=== PATIENT | female | born 1950 | race Caucasian/White ===

== ENCOUNTER → 2016-11-02 | Outpatient (CLI) | payer MEDICARE, OTHER | END | disposition home or self-care (01) | LOC: LABWHC1 10:06 | PROVIDERS: ATTEND Internal Medicine Endocrinology, Diabetes & Metabolism | DX: C73 Malignant neoplasm of thyroid gland (principal) | CPT/HCPCS: 36415; 84432; 84443; 86800 ==

== ENCOUNTER → 2016-11-06 | Outpatient (CLI) | payer MEDICARE, OTHER ==
--- NOTE | 2016-11-06 10:10 | US ---
EXAMINATION TYPE: US thyroid st tissue head/neck DATE OF EXAM: 11/06/2016 8:28 AM COMPARISON: 03/05/2016 CLINICAL HISTORY: C73 malignant neoplasm thyroid gland. GLAND SIZE: Right Lobe: no residual tissue Left Lobe: no residual tissue Bilateral neck scanned 2 hypoechic non-vascular structures on right measuring 0.6 x 0.5 x 0.7cm, 2.) 0.9 x 0.6 x 0.9cm possible lymph nodes. Hyperechoic non-vascular structure on left measuring 0.5 x 0.3 x 0.6cm IMPRESSION: There are small less than 1 cm hypoechoic hyperechoic nodules bilaterally greater on the right as john sured above. The previous 1 cm suspected lymph node on the right appears stable. 2 additional subcent imeter nodules are also seen which may represent lymph nodes but are nonspecific. Hyperechoic nodule on the left is not typical of a lymph node and nonspecific.
== END | disposition home or self-care (01) ==
LOC: RADUSMAIN 07:57
PROVIDERS: ATTEND Internal Medicine Endocrinology, Diabetes & Metabolism
DX: E04.2 Nontoxic multinodular goiter (principal); C73 Malignant neoplasm of thyroid gland
CPT/HCPCS: 76536

== ENCOUNTER → 2016-11-16 | Outpatient (CLI) | payer MEDICARE, OTHER | LOC: RADNMMAIN 09:47 | PROVIDERS: ATTEND Internal Medicine Endocrinology, Diabetes & Metabolism | DX: Z53.9 Procedure and treatment not carried out, unspecified reason (principal) ==

== ENCOUNTER → 2017-01-24 | Outpatient (CLI) | payer MEDICARE, OTHER ==
--- NOTE | 2017-01-28 08:10 | MM ---
Reason for exam: screening (asymptomatic). Last mammogram was performed 1 year ago. History: Patient is postmenopausal and has history of high-risk lesion on a previous biopsy at age 59. Family history of breast cancer in sister at age 53 and breast cancer in daughter at age 35. Benign left breast needle localization of the left breast, February 09, 2013. Benign left mammotome panel of the left breast, January 26, 2013. High risk left breast needle localization of the left breast, May 27, 2009. Benign left US cyst aspiration of the left breast, April 02, 2005. Benign US left CoreBiopsy of the left breast, April 02, 2005. Benign stereotactic core biopsy of the left breast, April 30, 2002. Took hormonal contraceptives for 6 years beginning at age 20. Physical Findings: A clinical breast exam by your physician is recommended on an annual basis and results should be correlated with mammographic findings. MG 3D Screening Mammo W/Cad Bilateral CC and MLO view(s) were taken. Prior study comparison: January 24, 2016, bilateral MG screening mammo w CAD. January 07, 2015, bilateral MG screening mammo w CAD. The breast tissue is heterogeneously dense. This may lower the sensitivity of mammography. Benign calcifications. Post biopsy changes in the left breast. No significant changes when compared with prior studies. ASSESSMENT: Benign, BI-RAD 2 RECOMMENDATION: Routine screening mammogram of both breasts in 1 year.
== END | disposition home or self-care (01) ==
LOC: RADMAMWWP 07:44
PROVIDERS: ATTEND Obstetrics & Gynecology
DX: Z12.31 Encounter for screening mammogram for malignant neoplasm of breast (principal)
CPT/HCPCS: 77063; G0202

== ENCOUNTER → 2017-03-04 | Day surgery (SDC) | payer MEDICARE, OTHER ==
[~2017-03-04] MED LIST: THYROTROPIN ALFA 1.1 MG VIAL IM ONE
[2017-03-04 11:37] VITALS: RESP 16
[2017-03-05 11:08] VITALS: BP 151/86; PULSE 86; TEMP 98
--- NOTE | 2017-03-13 08:21 | NM ---
RADIOTRACER: 97.0 mCi I-131. TECHNIQUE: The patient was instructed to hold Synthroid. TSH was checked and was greater than 90. Pat ient is on a low iodine diet. Dose was prescribed (written directive) by an Authorized User in conjunction with treatment request russell Aguirre. Risks, benefits, and potential complications of radioactive I-131 therapy were discussed in detail wi th the patient by myself and the test engineer nuclear equipment. Verbal and written informed consent wer e obtained. Written instructions were given for radiation safety precautions to be observed for 4 day s outpatient. The patient specific exposure calculations were done by RSO to ensure estimated max dose to any indiv idual exposed to the patient was less than 5 mSv. The patient was specifically advised to avoid close contact with children, women, and other members of public. Dose was verified in dose caliber and patient was given oral I-131 pill under the supervision of me flores ellis the test engineer nuclear equipment. There were no immediate complications. IMPRESSION: Outpatient 3.02 mCi I-131 oral therapy capsule for thyroid cancer. The patient will follo w-up with Dr. Aguirre as to making arrangements for post ablation whole body scan as clinically indicated .
== END ==
LOC: RADNMMAIN 10:48
PROVIDERS: ATTEND Internal Medicine Endocrinology, Diabetes & Metabolism
DX: E89.0 Postprocedural hypothyroidism (principal); Z91.041 Radiographic dye allergy status
CPT/HCPCS: 96372; J3240; 79005; 84432; 84439; 84443; 86800

== ENCOUNTER → 2017-03-22 | Outpatient (CLI) | payer MEDICARE, OTHER ==
--- NOTE | 2017-03-22 08:59 | BD ---
EXAMINATION TYPE: MG DEXA axial skeleton. DATE OF EXAM: 03/22/2017 COMPARISON: 10.23.2013 CLINICAL HISTORY: M[age] KNOWN OSTEOPOROSIS Nuclear Medicine Study in the last 2 weeks: THYROID NUCLEAR MED SCAN 03.08.2017....EXACTLY 2 WKS AGO Height: 59.5 Weight: 145 FRAX RISK QUESTIONS: Alcohol (3 or more units per day): NO Family History (Parent hip fracture): NO FXS Glucocorticoids (More than 3mos): NO (Ex: prednisone, prednisolone, methylprednisolone, dexamethasone, and hydrocortisone). History of Fracture in Adulthood: YES Secondary Osteoporosis: NO 1. Type 1 Diabetes: NO 2. Hyperthyroidism: NO 3. Menopause before 45: YES 4. Malnutrition: NO 5. Chronic liver disease: NO Rheumatoid Arthritis: NO Current Tobacco Use: NO RISK FACTORS HISTORY OF: LT TOE, RECENTLY...>50 YRS OLD Family History of Osteoporosis: YES, MOTHER...NO HIP FXS Active: YES Diet low in dairy products/other sources of calcium: NO Postmenopausal woman: AT 37 YRS OLD If Premenopausal, do you have irregular periods: 37 Hyperparathyroidism: NO Adrenal Insufficiency: NO MEDICATIONS: Thyroid Medications: YES, SYNTHROID How Lon YR Additional Medications: RADIATION TO KILL THYROID LAST YR., STATINS FOR CHOLESTEROL Additional History: THYROID CA, EXAM MEASUREMENTS: Bone mineral densitometry was performed using the [employer] System. Bone mineral density as measured about the Lumbar spine is: ----- L1-L4(G/cm2): 0.904 T Score Values are as follows: ----- L1: -2.5 ----- L2: -2.9 ----- L3: -2.6 ----- L4: -2.0 ----- L1-L4: -2.4 Bone mineral density has: Decreased -5.1% since study of: 10.23.2013 Bone mineral density about the R hip (g/cm2): 0.865 Bone mineral density about the L hip (g/cm2): 0.823 T Score values are as follows: -----R Neck: -1.9 -----L Neck: -2.0 -----R Total: -1.1 -----L Total: -1.5 Bone mineral density has: Decreased -4.4% since study of: 10.23.2013 FRAX%'S: THERE IS A 10.3% CHANCE OF A MAJOR OSTEOPOROTIC FX AND A 1.7% CHANCE OF HIP FX....PROBDANIEL NICKERSON IN 10 YRS TIME IMPRESSION: Osteoporosis (T Score less than -2.5) as noted by T Score values at the low back persists. Bone densi ty continues to decrease or diminished from prior exam. There is increased fracture risk and therapy is usually indicated based on age. Re-Screen 1-2 years. NOTE: T-SCORE=SD OF THE YOUNG ADULT MEAN.
== END | disposition home or self-care (01) ==
LOC: RADBDWWP 07:17
PROVIDERS: ATTEND Obstetrics & Gynecology
DX: M81.0 Age-related osteoporosis without current pathological fracture (principal)
CPT/HCPCS: 77080

== ENCOUNTER → 2017-10-01 | Outpatient (CLI) | payer MEDICARE, OTHER | END | disposition home or self-care (01) | LOC: LABWHC1 11:34 | PROVIDERS: ATTEND Internal Medicine Endocrinology, Diabetes & Metabolism | DX: C73 Malignant neoplasm of thyroid gland (principal) | CPT/HCPCS: 36415; 84432; 84443 ==

== ENCOUNTER → 2018-02-06 | Outpatient (CLI) | payer MEDICARE, OTHER ==
[2018-02-06 20:01] LABS: Thyroglobulin <0.20 ng/mL (1.60-59.90)
== END | disposition home or self-care (01) ==
LOC: LABWHC1 07:43
PROVIDERS: ATTEND Internal Medicine Endocrinology, Diabetes & Metabolism
DX: C73 Malignant neoplasm of thyroid gland (principal)
CPT/HCPCS: 36415; 84432; 84443; 86800

== ENCOUNTER → 2018-02-17 | Outpatient (CLI) | payer MEDICARE, OTHER ==
--- NOTE | 2018-02-17 08:16 | US ---
EXAMINATION TYPE: US thyroid st tissue head/neck DATE OF EXAM: 02/17/2018 COMPARISON: Ultrasound 11/06/2016. Nuclear medicine scan 03/08/2017 CLINICAL HISTORY: 68-year-old female C73 malignant neoplasm of thyroid gland. TECHNIQUE: Multiple sonographic images of the thyroid gland are obtained. FINDINGS: Status post thyroidectomy. No residual thyroid tissue seen. Solid lesion seen, right lateral neck adjacent to IJV, measures 1.1 x 0.7 x 1.0 cm with vascularity. Previously measured 9 x 6 x 9 mm. The second nodule previously seen on the right and the left-sided hyperechoic nodule are no longer se en. IMPRESSION: 1. Status post thyroidectomy. 2. Solid nodule along the lateral aspect of the right internal jugular vein outside of the thyroidect feli bed is redemonstrated. This measures 1.1 x 1.0 cm versus 9 x 9 mm, previously. Continued follow-u p recommended given relatively little growth compared to 11/06/2016. Additional correlation with tumor markers recommended.
== END | disposition home or self-care (01) ==
LOC: RADUSWWP 07:34
PROVIDERS: ATTEND Internal Medicine Endocrinology, Diabetes & Metabolism
DX: Z08 Encounter for follow-up examination after completed treatment for malignant neoplasm (principal); E04.1 Nontoxic single thyroid nodule; E89.0 Postprocedural hypothyroidism; Z85.850 Personal history of malignant neoplasm of thyroid
CPT/HCPCS: 76536

== ENCOUNTER → 2018-03-05 | Outpatient (CLI) | payer MEDICARE, OTHER ==
--- NOTE | 2018-03-07 09:14 | MM ---
Reason for exam: screening (asymptomatic). Last mammogram was performed 1 year and 1 month ago. History: Patient is postmenopausal and has history of high-risk lesion on a previous biopsy at age 59. Family history of breast cancer in sister at age 53 and breast cancer in daughter at age 35. Benign left breast needle localization of the left breast, February 09, 2013. Benign left mammotome panel of the left breast, January 26, 2013. High risk left breast needle localization of the left breast, May 27, 2009. Benign left US cyst aspiration of the left breast, April 02, 2005. Benign US left CoreBiopsy of the left breast, April 02, 2005. Benign stereotactic core biopsy of the left breast, April 30, 2002. Took hormonal contraceptives for 6 years beginning at age 20. Physical Findings: A clinical breast exam by your physician is recommended on an annual basis and results should be correlated with mammographic findings. MG 3D Screening Mammo W/Cad Bilateral CC and MLO view(s) were taken. Prior study comparison: January 24, 2017, bilateral MG 3d screening mammo w/cad. January 24, 2016, bilateral MG screening mammo w CAD. There are scattered fibroglandular densities. No significant changes when compared with prior studies. ASSESSMENT: Benign, BI-RAD 2 RECOMMENDATION: Routine screening mammogram of both breasts in 1 year.
== END | disposition home or self-care (01) ==
LOC: RADMAMWWP 07:45
PROVIDERS: ATTEND Obstetrics & Gynecology
DX: Z12.31 Encounter for screening mammogram for malignant neoplasm of breast (principal)
CPT/HCPCS: 77063; 77067

== ENCOUNTER → 2018-06-10 | Outpatient (CLI) | payer MEDICARE, OTHER ==
[2018-06-10 20:11] LABS: Thyroglobulin 0.29 ng/mL (1.60-59.90)
== END | disposition home or self-care (01) ==
LOC: LABWHC1 07:42
PROVIDERS: ATTEND Internal Medicine Endocrinology, Diabetes & Metabolism
DX: C73 Malignant neoplasm of thyroid gland (principal)
CPT/HCPCS: 36415; 84432; 84443; 86800

== ENCOUNTER → 2018-06-13 | Outpatient (CLI) | payer MEDICARE, OTHER ==
--- NOTE | 2018-06-13 15:13 | US ---
EXAMINATION TYPE: US thyroid st tissue head/neck DATE OF EXAM: 06/13/2018 COMPARISON: February 17, 2018 CLINICAL HISTORY: C73 Malignant neoplasm of thyroid gland. Patient has previous thyroidectomy. At last exam, probable lymph node noted right lateral. Seen again today measuring 1.0 x 0.5 x 0.9cm IMPRESSION: 1. Total thyroidectomy change. 2. Stable lymph node as noted above.
== END | disposition home or self-care (01) ==
LOC: RADUSWWP 14:48
PROVIDERS: ATTEND Internal Medicine Endocrinology, Diabetes & Metabolism
DX: Z08 Encounter for follow-up examination after completed treatment for malignant neoplasm (principal); Z85.850 Personal history of malignant neoplasm of thyroid; Z90.89 Acquired absence of other organs
CPT/HCPCS: 76536

== ENCOUNTER 2018-09-02 09:47 | Day surgery (SDC) | payer MEDICARE ==
[2018-08-28 15:04] VITALS: BMI 26.4
[~2018-09-02 09:47] MED LIST changes: +HYDROmorphone 0.5 MG/0.5 ML SYRINGE IVP PRN; +LACTATED RINGERS 1,000 ML IV SCH; +LIDOCAINE 1% 20 ML VIAL (10MG/ML) FOR IV START INTRADERMA PRN; +ONDANSETRON 4 MG/2 ML VIAL IVP PRN; -THYROTROPIN ALFA 1.1 MG VIAL IM ONE
[2018-09-02 10:03] VITALS: RESP 16; TEMP 98.4
[2018-09-02] MEDS ORDERED: PROPOFOL 10 MG/ML 20 ML VIAL IV ONE (11:37)
[2018-09-02 12:32] VITALS: BP 128/88; PULSE 77
--- NOTE | 2018-09-02 12:42 | P.PCN ---
Date of Procedure: 09/02/18 Procedure(s) Performed: Procedure: Colonoscopy. Preoperative diagnosis: Screening for neoplasia. Postoperative diagnosis: Sigmoid diverticulosis with no evidence of acute diverticulitis, strictures, polyps or cancer. Preparation: HalfLytely prep. Sedation: Was provided by anesthesia. Brief clinical history: The patient is a 68-year-old female who is scheduled for this evaluation for screening for neoplasia. There is family history of colon cancer in her mother. Her last exam was around 10 years ago. She has no abdominal complaints, bleeding or anemia. Procedure: With the patient on her left lateral decubitus position and after informed consent and adequate sedation, the perianal area was inspected and it did not show any fissures or fistulas. There were no masses felt on digital rectal examination. The Olympus CFH 190L video colonoscope was then inserted in the rectum and the usual fashion and advanced to the cecum. There were several diverticular orifices seen scattered in the sigmoid but I saw no evidence of acute diverticulitis or strictures. No polyps or tumors were seen. I retroflexed the endoscope in the rectum before the endoscope was withdrawn. The patient tolerated the procedure well. Plan: The patient was reassured. Discussed dietary measures. She will follow- up with you as planned and I recommended repeat exam in 5 years.
== END 2018-09-02 12:47 | disposition home or self-care (01) ==
LOC: ORWHC2ENDO 09:47
DX: Z12.11 Encounter for screening for malignant neoplasm of colon (principal); K57.30 Diverticulosis of large intestine without perforation or abscess without bleeding; Z80.0 Family history of malignant neoplasm of digestive organs; I48.91 Unspecified atrial fibrillation; E78.5 Hyperlipidemia, unspecified; I10 Essential (primary) hypertension; E07.9 Disorder of thyroid, unspecified; Z79.890 Hormone replacement therapy; Z79.899 Other long term (current) drug therapy
CPT/HCPCS: G0105; J2704; 45378

== ENCOUNTER → 2018-10-13 | Outpatient (CLI) | payer MEDICARE ==
[2018-10-13 19:47] LABS: Thyroglobulin 0.22 ng/mL (1.60-59.90)
== END ==
LOC: LABWHC1 07:57
PROVIDERS: ATTEND Internal Medicine Endocrinology, Diabetes & Metabolism
DX: C73 Malignant neoplasm of thyroid gland (principal)
CPT/HCPCS: 36415; 84432; 84443; 86800

== ENCOUNTER → 2019-04-03 | Outpatient (CLI) | payer MEDICARE | END | disposition home or self-care (01) | LOC: LABWHC1 07:45 | PROVIDERS: ATTEND Internal Medicine Endocrinology, Diabetes & Metabolism | DX: C73 Malignant neoplasm of thyroid gland (principal) | CPT/HCPCS: 36415; 84432; 84443; 86800 ==

== ENCOUNTER → 2019-04-09 | Outpatient (CLI) | payer MEDICARE ==
--- NOTE | 2019-04-10 14:07 | MM ---
Reason for exam: screening (asymptomatic). Last mammogram was performed 1 year and 1 month ago. History: Patient is postmenopausal and has history of high-risk lesion on a previous biopsy at age 59. Family history of breast cancer in sister at age 53 and breast cancer in daughter at age 35. Benign left breast needle localization of the left breast, February 09, 2013. Benign left mammotome panel of the left breast, January 26, 2013. High risk left breast needle localization of the left breast, May 27, 2009. Benign left US cyst aspiration of the left breast, April 02, 2005. Benign US left CoreBiopsy of the left breast, April 02, 2005. Benign stereotactic core biopsy of the left breast, April 30, 2002. Took hormonal contraceptives for 6 years beginning at age 20. Physical Findings: A clinical breast exam by your physician is recommended on an annual basis and results should be correlated with mammographic findings. MG 3D Screening Mammo W/Cad Bilateral CC and MLO view(s) were taken. Prior study comparison: March 05, 2018, bilateral MG 3d screening mammo w/cad. January 24, 2017, bilateral MG 3d screening mammo w/cad. The breast tissue is heterogeneously dense. This may lower the sensitivity of mammography. No significant changes when compared with prior studies. ASSESSMENT: Benign, BI-RAD 2 RECOMMENDATION: Routine screening mammogram of both breasts in 1 year.
== END | disposition home or self-care (01) ==
LOC: RADMAMWWP 09:36
PROVIDERS: ATTEND Obstetrics & Gynecology
DX: Z12.31 Encounter for screening mammogram for malignant neoplasm of breast (principal); Z80.3 Family history of malignant neoplasm of breast
CPT/HCPCS: 77063; 77067

== ENCOUNTER → 2019-04-16 | Outpatient (CLI) | payer MEDICARE ==
--- NOTE | 2019-04-16 10:22 | BD ---
EXAMINATION TYPE: Axial Bone Density DATE OF EXAM: 04/16/2019 COMPARISON: 03.22.2017 CLINICAL HISTORY: M 89.9 Height: 60.5 Weight: 146.0 FRAX RISK QUESTIONS: Alcohol (3 or more units per day): no Family History (Parent hip fracture): no Glucocorticoids (More than 3mos): no (Ex: prednisone, prednisolone, methylprednisolone, dexamethasone, and hydrocortisone). History of Fracture in Adulthood: yes Secondary Osteoporosis: 1. Type 1 Diabetes: no 2. Hyperthyroidism: no 3. Menopause before 45: yes 4. Malnutrition: no 5. Chronic liver disease: no Rheumatoid Arthritis: no Current Tobacco Use: no RISK FACTORS HISTORY OF: History of Wrist Fracture: left wrist When: around age 50 Family History of Osteoporosis: yes Active: yes Diet low in dairy products/other sources of calcium: yes Postmenopausal woman: partial hysterectomy age 35 Lost more than 2 inches in height since high school: no MEDICATIONS: cholesterol meds, blood pressure with a water pill Thyroid Medications: thyroid How Lon years Additional History: EXAM MEASUREMENTS: Bone mineral densitometry was performed using the [employer] System. Bone mineral density as measured about the Lumbar spine is: ----- L1-L4(G/cm2): 0.944 T Score Values are as follows: ----- L2: -3.0 ----- L3: -1.7 ----- L4: -1.5 ----- L1-L4: -2.0 Bone mineral density has: increased 6.1 % since study of: 03.22.2017 Bone mineral density about the R hip (g/cm2): 0.762 Bone mineral density about the L hip (g/cm2): 0.757 T Score values are as follows: -----R Neck: -2.0 -----L Neck: -2.0 -----R Total: -1.0 -----L Total: -1.4 Bone mineral density has: increased 1.2 % since study of: 03.22.2017 IMPRESSION: Osteopenia (T Score between -2.5 and -1). There is slightly increased risk of fracture and the patient may be considered for treatment. Re-Screen 2-5 years. NOTE: T-SCORE=SD OF THE YOUNG ADULT MEAN.
== END | disposition home or self-care (01) ==
LOC: RADBDWWP 07:53
PROVIDERS: ATTEND Obstetrics & Gynecology
DX: M85.88 Other specified disorders of bone density and structure, other site (principal)
CPT/HCPCS: 77080

== ENCOUNTER → 2019-09-23 | Outpatient (CLI) | payer MEDICARE ==
[2019-09-23 10:09] LABS: Basophils # (A) 0.1 k/uL (0-0.2); Basophils % (A) 1 %; Eosinophils # (A) 0.2 k/uL (0-0.7); Eosinophils % (A) 3 %; HCT 39.5 % (34.0-46.0); HGB 13.3 gm/dL (11.4-16.0); Lymphocytes # (A) 1.4 k/uL (1.0-4.8); Lymphocytes % (A) 25 %; MCH 27.5 pg (25.0-35.0); MCHC 33.8 g/dL (31.0-37.0); MCV 81.4 fL (80.0-100.0); Mean Platelet Volume 7.1; Monocytes # (A) 0.4 k/uL (0-1.0); Monocytes % (A) 7 %; Neutrophils # (A) 3.4 k/uL (1.3-7.7); Neutrophils % (A) 62 %; Platelet Count 250 k/uL (150-450); RBC 4.85 m/uL (3.80-5.40); RDW 12.1 % (11.5-15.5); WBC 5.5 k/uL (3.8-10.6)
[2019-09-23 17:05] LABS: African American GFR (CKD) 75.6 (60.0-200.0); Albumin 4.4 g/dL (3.80-4.90); Albumin/Globulin Ratio 1.91 (1.60-3.17); Anion Gap 11.9 mmol/L (4.00-12.00); BUN/Creat Ratio 13.33 Ratio (12.00-20.00); Calcium 9.3 mg/dL (8.7-10.3); Carbon Dioxide 27.1 mmol/L (21.6-31.8); Chol/HDL Ratio 4.09; Globulin 2.3 g/dL (1.6-3.3); LDL Cholesterol,Calculated 99.2 mg/dL (0.0-131.0); Non-African American GFR(CKD) 65.2 (60.0-200.0); Potassium 3.6 mmol/L (3.5-5.5); Total Bilirubin 0.6 mg/dL (0.3-1.2); Total Protein 6.7 g/dL (6.2-8.2); VLDL Calculation 42.8 mg/dL (5.00-40.00)
== END | disposition home or self-care (01) ==
LOC: LABWHC1 08:42
PROVIDERS: ATTEND Internal Medicine Endocrinology, Diabetes & Metabolism
DX: C73 Malignant neoplasm of thyroid gland (principal); E78.5 Hyperlipidemia, unspecified; D64.9 Anemia, unspecified; R73.9 Hyperglycemia, unspecified; R03.0 Elevated blood-pressure reading, without diagnosis of hypertension; E55.9 Vitamin D deficiency, unspecified
CPT/HCPCS: 36415; 80053; 80061; 82306; 84432; 84443; 85025; 86800

== ENCOUNTER → 2019-09-25 | Outpatient (CLI) | payer MEDICARE ==
--- NOTE | 2019-09-26 07:30 | US ---
EXAMINATION TYPE: US thyroid st tissue head/neck DATE OF EXAM: 09/25/2019 COMPARISON: 06/13/2018 CLINICAL HISTORY: C73 MALIGNANT NEOPLASM OF THYROID GLAND. Hx total thyroidectomy. GLAND SIZE: Right Lobe: Surgically absent Left Lobe: Surgically absent Bilateral neck scanned. Prominent lymph node appearing lesion in right lateral neck = 1.1 x 0.8 x 0. 6 cm. This measured 1.0 x 0.9 x 0.5 cm on the exam of 06/13/2018. IMPRESSION: Similar size of the solitary prominent right sided lymph node in comparison to the exam 2017. Correlate with serum direct globulin levels. Surgical absence of the thyroid gland.
== END | disposition home or self-care (01) ==
LOC: RADUSWWP 16:39
PROVIDERS: ATTEND Internal Medicine Endocrinology, Diabetes & Metabolism
DX: E89.0 Postprocedural hypothyroidism (principal); C73 Malignant neoplasm of thyroid gland
CPT/HCPCS: 76536

== ENCOUNTER 2020-04-06 09:56 | Emergency (ER) | payer MEDICARE ==
[2020-04-06 10:03] VITALS: RESP 18
--- NOTE | 2020-04-06 10:20 | ED ---
General Adult HPI - General Chief complaint: Fall Stated complaint: Fall Time Seen by Provider: 04/06/20 10:04 Source: patient, RN notes reviewed Mode of arrival: wheelchair Limitations: no limitations - History of Present Illness Initial comments: 70-year-old female with a past medical history of atrial fibrillation with ablation, hyperlipidemia presents to the emergency room for a chief complaint of fall. Patient reports yesterday she was walking backwards down about 5 steps. States she missed the second step and fell. Patient states she injured her right ankle when she fell. She states that it was swollen last night however has improved significantly after keeping it elevated and ice on it. Patient states it is painful to walk on. Patient denies any chest back or abdominal pain. Patient did not hit her head during the fall however she states a shelf did fall from a wall and hit her on the head. No loss of consciousness. No headache. No blood thinners.Patient has no other complaints at this time including shortness of breath, chest pain, abdominal pain, nausea or vomiting, headache, or visual changes. - Related Data Home Medications Medication Instructions Recorded Confirmed Pravastatin Sodium [Pravachol] 20 mg PO HS 08/26/15 04/06/20 Levothyroxine Sodium [Synthroid] 112 mcg PO QAM 02/22/17 04/06/20 lisinopriL [Prinivil] 10 mg PO QAM 03/25/18 04/06/20 hydroCHLOROthiazide [Hydrodiuril] 25 mg PO DAILY 04/06/20 04/06/20 Allergies Allergy/AdvReac Type Severity Reaction Status Date / Time No Known Allergies Allergy Verified 04/06/20 10:39 Review of Systems ROS Statement: Those systems with pertinent positive or pertinent negative responses have been documented in the HPI. ROS Other: All systems not noted in ROS Statement are negative. Past Medical History Past Medical History: Atrial Fibrillation, Hyperlipidemia, Thyroid Disorder Additional Past Medical History / Comment(s): PREVIOUS ATRIAL FIB-HAD ABLATION History of Any Multi-Drug Resistant Organisms: None Reported Past Surgical History: Cardiac Ablation, Hysterectomy Additional Past Surgical History / Comment(s): LEFT SIDE THYROID REMOVED, breast biopsy Past Anesthesia/Blood Transfusion Reactions: No Reported Reaction Past Psychological History: No Psychological Hx Reported Smoking Status: Never smoker Past Alcohol Use History: Occasional Past Drug Use History: None Reported - Past Family History Sister(s) Family Medical History: Cancer Additional Family Medical History / Comment(s): breast cancer, liver cancer Mother Family Medical History: Cancer Additional Family Medical History / Comment(s): COLON CANCER Daughter(s) Family Medical History: Cancer Additional Family Medical History / Comment(s): BREAST CANCER General Exam - General Exam Comments Initial Comments: Right ankle: Patient does have some mild edema noted to the lateral malleolus. No medial malleoli or edema. No tenderness in the ankle or foot. Full range of motion of the right ankle and foot. Limitations: no limitations General appearance: alert, in no apparent distress Head exam: Present: atraumatic, normocephalic, normal inspection Eye exam: Present: normal appearance, PERRL, EOMI. Absent: scleral icterus, conjunctival injection, periorbital swelling ENT exam: Present: normal exam, mucous membranes moist Neck exam: Present: normal inspection. Absent: tenderness, meningismus, lymphadenopathy Respiratory exam: Present: normal lung sounds bilaterally. Absent: respiratory distress, wheezes, rales, rhonchi, stridor Cardiovascular Exam: Present: regular rate, normal rhythm, normal heart sounds. Absent: systolic murmur, diastolic murmur, rubs, gallop, clicks GI/Abdominal exam: Present: soft, normal bowel sounds. Absent: distended, tenderness, guarding, rebound, rigid Neurological exam: Present: alert, oriented X3 Course Vital Signs 04/06/20 10:00 Temperature 98.7 F Pulse Rate 84 Respiratory 18 Rate Blood Pressure 136/84 O2 Sat by Pulse 98 Oximetry Medical Decision Making - Medical Decision Making X-ray of the right foot and ankle shows no definite acute fracture or dislocation. Patient was given a aircast. She will follow-up with orthopedics. Discussed rice therapy and Motrin and Tylenol for pain. Discussed returning if she has any worsening symptoms or Disposition Clinical Impression: Ankle pain, right Disposition: HOME SELF-CARE Condition: Good Instructions (If sedation given, give patient instructions): Swollen Joint (ED) Additional Instructions: Please take Motrin and Tylenol for pain. Rest ice and elevate the right ankle. Follow-up with your doctor in one to 2 days. Return to the emergency room for any worsening symptoms. Is patient prescribed a controlled substance at d/c from ED?: No Referrals: Nonstaff,Physician [Primary Care Provider] - 1-2 days Time of Disposition: 11:09
--- NOTE | 2020-04-06 10:48 | XR ---
EXAMINATION TYPE: XR ankle complete RT DATE OF EXAM: 04/06/2020 COMPARISON: NONE HISTORY: Pain FINDINGS: Three views of the ankle demonstrate the ankle mortise to be intact and symmetric. The joint spaces are preserved. The osseous structures are intact. Small plantar calcaneal spur. IMPRESSION: 1. No definite acute fracture or dislocation, if symptoms persist follow-up study in 7 to 10 days wou ld be suggested.
--- NOTE | 2020-04-06 10:49 | XR ---
EXAMINATION TYPE: XR foot complete RT DATE OF EXAM: 04/06/2020 COMPARISON: NONE HISTORY: Pain TECHNIQUE: Three views are submitted. FINDINGS: The osseous structures are intact. There is no acute fracture or dislocation. Arthropathy of the f irst MTP joint. Small plantar calcaneal spur IMPRESSION: 1. No acute fracture or dislocation. If symptoms persist, follow-up exam in 7 to 10 days could be ob tained.
[2020-04-06 11:20] VITALS: BP 110/87; PULSE 85; TEMP 98.2
== END 2020-04-06 11:22 | disposition home or self-care (01) ==
LOC: EC 09:56
DX: M25.571 Pain in right ankle and joints of right foot (principal); E78.5 Hyperlipidemia, unspecified; E07.9 Disorder of thyroid, unspecified; Z79.899 Other long term (current) drug therapy; Z79.890 Hormone replacement therapy
CPT/HCPCS: 29515; 99283

== ENCOUNTER → 2020-05-03 | Outpatient (CLI) | payer MEDICARE ==
--- NOTE | 2020-05-09 11:16 | MM ---
Reason for exam: screening (asymptomatic). Last mammogram was performed 1 year and 1 month ago. History: Patient is postmenopausal, has history of high-risk lesion on a previous biopsy at age 59, and history of other cancer. Family history of breast cancer in sister at age 53 and breast cancer in daughter at age 35. Benign left breast needle localization of the left breast, February 09, 2013. Benign left mammotome panel of the left breast, January 26, 2013. High risk left breast needle localization of the left breast, May 27, 2009. Benign left US cyst aspiration of the left breast, April 02, 2005. Benign US left CoreBiopsy of the left breast, April 02, 2005. Benign stereotactic core biopsy of the left breast, April 30, 2002. Took hormonal contraceptives for 6 years beginning at age 20. Physical Findings: A clinical breast exam by your physician is recommended on an annual basis and results should be correlated with mammographic findings. MG 3D Screening Mammo W/Cad Bilateral CC and MLO view(s) were taken. Prior study comparison: April 09, 2019, bilateral MG 3d screening mammo w/cad. March 05, 2018, bilateral MG 3d screening mammo w/cad. The breast tissue is heterogeneously dense. This may lower the sensitivity of mammography. Benign appearing calcifications in the left breast. Asymmetric breast tissue post surgical change left breast. No significant changes when compared with prior studies. ASSESSMENT: Benign, BI-RAD 2 RECOMMENDATION: Routine screening mammogram of both breasts in 1 year.
== END | disposition home or self-care (01) ==
LOC: RADMAMWWP 13:48
PROVIDERS: ATTEND Obstetrics & Gynecology
DX: Z12.31 Encounter for screening mammogram for malignant neoplasm of breast (principal)
CPT/HCPCS: 77063; 77067

== ENCOUNTER → 2020-06-23 | Outpatient (CLI) | payer MEDICARE | END | disposition home or self-care (01) | LOC: LABWHC1 08:22 | PROVIDERS: ATTEND Internal Medicine Endocrinology, Diabetes & Metabolism | DX: C73 Malignant neoplasm of thyroid gland (principal) | CPT/HCPCS: 36415; 84432; 84443; 86800 ==

== ENCOUNTER → 2020-12-22 | Outpatient (CLI) | payer MEDICARE ==
--- NOTE | 2020-12-22 17:59 | US ---
EXAMINATION TYPE: US thyroid st tissue head/neck DATE OF EXAM: 12/22/2020 COMPARISON: 09/25/2019 CLINICAL HISTORY: C73 MALIGNANT NEOPLASM OF THYROID GLAND. GLAND SIZE: Right Lobe: Surgically absent Left Lobe: Surgically absent NODULES Bilateral neck scanned. Within the right neck, there is a prominent hypoechoic lymph node visualized measuring 0.8 x 0.7 x 0.9 cm. This previously measured 1.1 x 0.8 x 0.6 cm on 09/25/2019 IMPRESSION: 1. No suspicious recurrent masses within the thyroid bed. 2. Diminished size of a right neck lymph node
== END | disposition home or self-care (01) ==
LOC: RADUSWWP 10:59
PROVIDERS: ATTEND Internal Medicine Endocrinology, Diabetes & Metabolism
DX: C73 Malignant neoplasm of thyroid gland (principal)
CPT/HCPCS: 76536

== ENCOUNTER → 2020-12-22 | Outpatient (CLI) | payer MEDICARE | END | disposition home or self-care (01) | LOC: LABWHC1 07:24 | PROVIDERS: ATTEND Internal Medicine Endocrinology, Diabetes & Metabolism | DX: C73 Malignant neoplasm of thyroid gland (principal) | CPT/HCPCS: 36415; 84432; 84443; 86800 ==

== ENCOUNTER → 2021-05-19 | Outpatient (CLI) | payer MEDICARE ==
--- NOTE | 2021-05-22 11:42 | MM ---
Reason for exam: screening (asymptomatic). Last mammogram was performed 1 year and 1 month ago. History: Patient is postmenopausal, has history of high-risk lesion on a previous biopsy at age 59, and has history of other cancer at age 35. Family history of breast cancer in sister at age 53 and breast cancer in daughter at age 35. Benign left breast needle localization of the left breast, February 09, 2013. Benign left mammotome panel of the left breast, January 26, 2013. High risk left breast needle localization of the left breast, May 27, 2009. Benign left US cyst aspiration of the left breast, April 02, 2005. Benign US left CoreBiopsy of the left breast, April 02, 2005. Benign stereotactic core biopsy of the left breast, April 30, 2002. Took hormonal contraceptives for 6 years beginning at age 20. Physical Findings: A clinical breast exam by your physician is recommended on an annual basis and results should be correlated with mammographic findings. MG 3D Screening Mammo W/Cad Bilateral CC and MLO view(s) were taken. Prior study comparison: May 03, 2020, bilateral MG 3d screening mammo w/cad. April 09, 2019, bilateral MG 3d screening mammo w/cad. The breast tissue is heterogeneously dense. This may lower the sensitivity of mammography. Finding: There is stable decreased size and architectural distortion in the lower inner quadrant of the left breast consistent with known excisional changes. There is no new dominant lesion. ASSESSMENT: Benign, BI-RAD 2 RECOMMENDATION: Routine screening mammogram of both breasts in 1 year.
== END | disposition home or self-care (01) ==
LOC: RADMAMWWP 08:33
PROVIDERS: ATTEND Obstetrics & Gynecology
DX: Z12.31 Encounter for screening mammogram for malignant neoplasm of breast (principal); Z80.3 Family history of malignant neoplasm of breast
CPT/HCPCS: 77063; 77067

== ENCOUNTER → 2021-07-25 | Outpatient (CLI) | payer MEDICARE | END | disposition home or self-care (01) | LOC: LABWHC1 07:52 | PROVIDERS: ATTEND Internal Medicine Endocrinology, Diabetes & Metabolism | DX: C73 Malignant neoplasm of thyroid gland (principal) | CPT/HCPCS: 36415; 84432; 84443; 86800 ==

== ENCOUNTER → 2022-01-24 | Outpatient (CLI) | payer MEDICARE | END | disposition home or self-care (01) | LOC: LABWHC1 07:51 | PROVIDERS: ATTEND Internal Medicine Endocrinology, Diabetes & Metabolism | DX: C73 Malignant neoplasm of thyroid gland (principal) | CPT/HCPCS: 36415; 84432; 84443; 86800 ==

== ENCOUNTER → 2022-02-13 | Outpatient (CLI) | payer MEDICARE ==
--- NOTE | 2022-02-13 10:31 | BD ---
EXAMINATION TYPE: Axial Bone Density DATE OF EXAM: 02/13/2022 COMPARISON: NONE CLINICAL HISTORY: 72 years year old Female. ICD-10 CODE: M85.88 OSTEOPENIA Height: 5 FT Weight: 139 FRAX RISK QUESTIONS: Alcohol (3 or more units per day): NO Family History (Parent hip fracture): NO Glucocorticoids (More than 3mos): NO (Ex: prednisone, prednisolone, methylprednisolone, dexamethasone, and hydrocortisone). History of Fracture in Adulthood: YES Secondary Osteoporosis: 1. Type 1 Diabetes: NO 2. Hyperthyroidism: REMOVED 3. Menopause before 45: YES 4. Malnutrition: NO 5. Chronic liver disease: NO Rheumatoid Arthritis: NO Current Tobacco Use: NO RISK FACTORS HISTORY OF: History of Wrist Fracture: RT WRIST When: 2012 Surgery to Spine/Hip(right/left)/Wrist (right/left): RT WRIST When: Family History of Osteoporosis: YES Active: YES Diet low in dairy products/other sources of calcium: NO Postmenopausal woman: YES Take estrogen and/or progesterone medications: NO Lost more than 2 inches in height since high school: NO Frequent falls: NO Poor Health: GOOD Hyperparathyroidism: NO Adrenal Insufficiency: NO MEDICATIONS: Thyroid Medications: YES Which medication: SYNTHROID How Lon YEARS Additional Medications: SYNTHROID, CHOLESTEROL MEDS, BLOOD PRESSURE MEDS, Additional History: EXAM MEASUREMENTS: Bone mineral densitometry was performed using the [employer] System. Bone mineral density as measured about the Lumbar spine is: ----- L1-L4(G/cm2): 0.911 T Score Values are as follows: ----- L1: -2.3 ----- L2: -3.1 ----- L3: -1.9 ----- L4: -1.7 ----- L1-L4: -2.2 Bone mineral density has: INCREASED 3.3 % since study of: 2017 Bone mineral density about the R hip (g/cm2): 0.777 Bone mineral density about the L hip (g/cm2): 0.699 T Score values are as follows: -----R Neck: -1.9 -----L Neck: -2.4 -----R Total: -1.3 -----L Total: -1.8 Bone mineral density has: DECREASED -3.9 % since study of: 2017 FRAX%s: The graph provided illustrates a 13.6 % chance for a major osteoporotic fx and a 3.4 % chance for the hips probability for fx in 10 years time. IMPRESSION: Osteopenia (T Score between -2.5 and -1). There is slightly increased risk of fracture and the patient may be considered for treatment. Re-Screen 2-5 years. NOTE: T-SCORE=SD OF THE YOUNG ADULT MEAN.
== END | disposition home or self-care (01) ==
LOC: RADBDWWP 08:27
PROVIDERS: ATTEND Obstetrics & Gynecology
DX: M85.89 Other specified disorders of bone density and structure, multiple sites (principal)
CPT/HCPCS: 77080

== ENCOUNTER → 2022-07-30 | Outpatient (CLI) | payer MEDICARE | LOC: LABWHC1 08:27 | PROVIDERS: ATTEND Internal Medicine Endocrinology, Diabetes & Metabolism | DX: C73 Malignant neoplasm of thyroid gland (principal) | CPT/HCPCS: 36415; 84432; 84443; 86800 ==

== ENCOUNTER → 2022-08-01 | Outpatient (CLI) | payer MEDICARE ==
--- NOTE | 2022-08-02 08:26 | MM ---
Reason for Exam: Screening (asymptomatic). Last mammogram was performed 1 year(s) and 2 month(s) ago. Patient History: Menarche at age 18. First Full-Term at age 20. Hysterectomy at age 46. Postmenopausal. Other cancer, age 35. Hormonal Contraceptives for 6 years from age 20 until age 26. 02/09/2013, Benign Excisional Biopsy on the left side. 01/26/2013, Benign Core Biopsy on the left side. 05/27/2009, High risk Excisional Biopsy on the left side. 04/02/2005, Benign Cyst Aspiration on the left side. 04/02/2005, Benign Core Biopsy on the left side. 04/30/2002, Benign Stereotactic Core Biopsy on the left side. Sister had breast cancer, age 53. Daughter had breast cancer, age 35. Risk Values: Mirta 5 year model risk: 9.6%. NCI Lifetime model risk: 23.0%. Prior Study Comparison: 04/09/2019 Bilateral Screening Mammogram, [facility]. 05/03/2020 Bilateral Screening Mammogram, [facility]. 05/19/2021 Bilateral Screening Mammogram, [facility]. Tissue Density: The breast tissue is heterogeneously dense. This may lower the sensitivity of mammography. Findings: Analyzed By CAD. There is no suspicious group of microcalcifications or new suspicious mass in either breast. Overall Assessment: Negative, BI-RAD 1 Management: Screening Mammogram of both breasts in 1 year. A clinical breast exam by your physician is recommended on an annual basis and results should be correlated with mammographic findings. [facility] will attempt to contact patient to return for supplemental views and ultrasound if indicated. Electronically signed and approved by: Dawson Sprague DO
== END | disposition home or self-care (01) ==
LOC: RADMAMWWP 07:12
PROVIDERS: ATTEND Obstetrics & Gynecology
DX: Z12.31 Encounter for screening mammogram for malignant neoplasm of breast (principal); Z78.0 Asymptomatic menopausal state; Z80.3 Family history of malignant neoplasm of breast
CPT/HCPCS: 77063; 77067

== ENCOUNTER → 2023-01-14 | Outpatient (CLI) | payer MEDICARE ==
[2023-01-14 16:26] LABS: T4, Free (Free Thyroxine) 1.97 ng/dL (0.80-1.80)
== END | disposition home or self-care (01) ==
LOC: LABWHC1 07:55
PROVIDERS: ATTEND Internal Medicine Endocrinology, Diabetes & Metabolism
DX: E03.9 Hypothyroidism, unspecified (principal)
CPT/HCPCS: 36415; 84439; 84443

== ENCOUNTER → 2023-01-23 | Outpatient (CLI) | payer MEDICARE ==
--- NOTE | 2023-01-23 14:29 | US ---
EXAMINATION TYPE: US thyroid st tissue head/neck DATE OF EXAM: 01/23/2023 COMPARISON: US 2020 CLINICAL INDICATION: Female, 72 years old with history of C73 Malignant neoplasm of thyroid gland; Hx thyroid cancer. Thyroid gland removed in 2016. Patient is on thyroid medication. GLAND SIZE: Right Lobe: Surgically absent Left Lobe: Surgically absent Bilateral neck scanned. Within the right neck, there appears to be a hypoechoic area lateral to the I JV measuring 0.9 x 1.0 x 0.7 cm. This area previously measured 0.8 x 0.7 x 0.9 cm on prior exam in 2020. IMPRESSION: There is a nonenlarged lymph node within the right neck. This may be fractionally larger than prior i n 2020.
== END | disposition home or self-care (01) ==
LOC: RADUSWWP 13:22
PROVIDERS: ATTEND Internal Medicine Endocrinology, Diabetes & Metabolism
DX: C73 Malignant neoplasm of thyroid gland (principal); R59.0 Localized enlarged lymph nodes
CPT/HCPCS: 76536

== ENCOUNTER → 2023-07-29 | Outpatient (CLI) | payer MEDICARE | END | disposition home or self-care (01) | LOC: LABWHC1 08:11 | PROVIDERS: ATTEND Internal Medicine Endocrinology, Diabetes & Metabolism | DX: C73 Malignant neoplasm of thyroid gland (principal) | CPT/HCPCS: 36415; 84432; 84443; 86800 ==

== ENCOUNTER → 2023-08-02 | Outpatient (CLI) | payer MEDICARE ==
--- NOTE | 2023-08-02 20:35 | MM ---
Reason for Exam: Screening (asymptomatic). Last screening mammogram was performed 12 month(s) ago. Patient History: Menarche at age 18. First Full-Term at age 20. Hysterectomy at age 46. Postmenopausal. Other cancer, age 35. Hormonal Contraceptives for 6 years from age 20 until age 26. 02/09/2013, Benign Excisional Biopsy on the left side. 01/26/2013, Benign Core Biopsy on the left side. 05/27/2009, High risk Excisional Biopsy on the left side. 04/02/2005, Benign Cyst Aspiration on the left side. 04/02/2005, Benign Core Biopsy on the left side. 04/30/2002, Benign Stereotactic Core Biopsy on the left side. Sister had breast cancer, age 53. Daughter had breast cancer, age 35. Risk Values: Mirta 5 year model risk: 6.5%. NCI Lifetime model risk: 15.4%. Prior Study Comparison: 05/03/2020 Bilateral Screening Mammogram, [facility]. 05/19/2021 Bilateral Screening Mammogram, [facility]. 08/01/2022 Bilateral MG 3D screening mammo w/cad, [facility]. Tissue Density: The breast tissue is heterogeneously dense. This may lower the sensitivity of mammography. Findings: Analyzed By CAD. Chronic nodularity right breast. On the left, unchanged nipple retraction. There is no suspicious group of microcalcifications or new suspicious mass in either breast. Overall Assessment: Benign, BI-RAD 2 Management: Screening Mammogram of both breasts in 1 year. See note below in regards to patient's increased 5 year Mirta score. Patient should continue monthly self-breast exams. A clinical breast exam by your physician is recommended on an annual basis. This exam should not preclude additional follow-up of suspicious palpable abnormalities. Note on Mirta scores and lifetime risk: 1. A Mirta score greater than 3% is considered moderate risk. If this is the case, consider specialist referral to assess eligibility for a risk reducing agent. 2. If overall lifetime risk for the development of breast cancer is 20% or higher, the patient may qualify for future screening with alternating mammogram and breast MRI. Electronically signed and approved by: Juanito Harrington M.D. Radiologist
== END | disposition home or self-care (01) ==
LOC: RADMAMWWP 06:54
PROVIDERS: ATTEND Obstetrics & Gynecology
DX: Z12.31 Encounter for screening mammogram for malignant neoplasm of breast (principal); Z80.3 Family history of malignant neoplasm of breast; Z78.0 Asymptomatic menopausal state
CPT/HCPCS: 77063; 77067

== ENCOUNTER → 2023-12-16 | Outpatient (CLI) | payer MEDICARE ==
--- NOTE | 2023-12-16 19:54 | US ---
EXAMINATION TYPE: US thyroid st tissue head/neck DATE OF EXAM: 12/16/2023 COMPARISON: Thyroid ultrasound 01/23/2023, 12/22/2020 CLINICAL INDICATION: Female, 73 years old with history of C73 MAIGNANT NEOPLASM OF THYROID GLAND; hx thyroidectomy 2015 GLAND SIZE: Right Lobe: Surgically absent cm Left Lobe: Surgically absent cm Isthmus Thickness: Surgically absent cm No evidence of residual tissue. Previously seen nonenlarged lymph node within the right neck is not w ell appreciated on today's exam. IMPRESSION: Postsurgical changes from thyroidectomy redemonstrated. No suspicious soft tissue in the thyroidectom y bed.
== END | disposition home or self-care (01) ==
LOC: RADUSWWP 13:51
PROVIDERS: ATTEND Internal Medicine Endocrinology, Diabetes & Metabolism
DX: E89.0 Postprocedural hypothyroidism (principal); C73 Malignant neoplasm of thyroid gland
CPT/HCPCS: 76536

== ENCOUNTER → 2023-12-16 | Outpatient (CLI) | payer MEDICARE | END | disposition home or self-care (01) | LOC: LABWHC1 07:59 | PROVIDERS: ATTEND Internal Medicine Endocrinology, Diabetes & Metabolism | DX: C73 Malignant neoplasm of thyroid gland (principal) | CPT/HCPCS: 36415; 84432; 84443; 86800 ==